=== PATIENT | female | born 1960 | race Caucasian/White ===

== ENCOUNTER 2018-10-26 21:47 | Inpatient (IN) | payer OTHER ==
[~2018-10-26] VITALS: Ht 165.1 cm; Wt 58.0 kg
[2018-10-26 21:48] VITALS: BP 157/104
[2018-10-26 22:05] LABS: ABSOLUTE BASOPHILS 0.1 thou/uL (0.0-0.2); ABSOLUTE LYMPHOCYTES 2.2 thou/uL (0.8-5.3); ABSOLUTE MONOCYTES 0.5 thou/uL (0.0-1.2); ABSOLUTE NEUTROPHILS 5.2 thou/uL (1.6-8.1); BASOPHILS 1.3 %; EOSINOPHILS 0.2 %; HEMATOCRIT 42.3 % (37.0-47.0); HEMOGLOBIN 14.2 gm/dL (12.0-15.0); LYMPHOCYTES 27.6 %; MCH 36.8 pg (26.0-34.0); MCHC 33.5 g/dL (28.0-37.0); MCV 109.8 fL (80.0-100.0); MONOCYTES 6.3 %; MPV 8.1 fl. (7.2-11.1); NUCLEATED RBCS 0 /100WBC; PLATELET COUNT* 279 thou/uL (150-400); POLYS 64.6 %; RBC 3.86 mil/uL (4.20-5.00); RDW-CV 16.8 % (10.5-14.5); WBC 8.1 thou/uL (4.0-11.0)
[2018-10-26 22:18] LABS: PROTIME 10.6 Seconds (9.20-11.50)
[2018-10-26 22:28] LABS: ANION GAP 10 mmol/L (7-16); BUN 7 mg/dL (7-18); CALCIUM 9.5 mg/dL (8.5-10.1); CHLORIDE 102 mmol/L (98-107); CO2 27 mmol/L (21-32); CREATININE 0.8 mg/dL (0.6-1.3); GLUCOSE 194 mg/dL (70-99); POTASSIUM 3.1 mmol/L (3.5-5.1); SODIUM 139 mmol/L (136-145); TROPONIN-I LEVEL <0.06 ng/mL (<0.06)
[2018-10-26 22:30] LABS: ALBUMIN 4.1 g/dL (3.4-5.0); ALKALINE PHOSPHATASE 118 U/L (46-116); AMMONIA 20 umol/L (11-32); LIPASE 108 U/L (73-393); MAGNESIUM 1.5 mg/dL (1.8-2.4); NT-PRO BRAIN NAT PEPTIDE 200 pg/mL (<300); PHOSPHORUS* 2.7 mg/dL (2.5-4.9); SGOT 19 U/L (15-37); SGPT 15 U/L (30-65); TOTAL PROTEIN 8.2 g/dL (6.4-8.2)
[2018-10-26 22:33] LABS: ACETAMINOPHEN < 2 ug/mL (10-30); SALICYLATE 3.7 mg/dL (2.8-20.0)
[2018-10-26 22:41] LABS: URINE BLOOD 2+ (Negative); URINE CLARITY CLEAR; URINE COLOR YELLOW; URINE GLUCOSE-RANDOM NEGATIVE (Negative); URINE KETONES 2+ (Negative); URINE LEUKOCYTES-REFLEX NEGATIVE (Negative); URINE NITRITE-REFLEX NEGATIVE (Negative); URINE PROTEIN 2+ (Negative); URINE SPECIFIC GRAVITY >= 1.030 (1.005-1.030)
[2018-10-26 22:48] LABS: URINE BILIRUBIN 1+ (Negative)
[2018-10-26 22:49] LABS: ICTOTEST (BILI CONFIRMATORY) Negative (Negative)
[2018-10-26 22:51] LABS: AMP/METHAMP Negative (Negative); BARBITURATES Negative (Negative); BENZODIAZEPINES POSITIVE (Negative); COCAINE Negative (Negative); METHADONE Negative (Negative); OPIATES Negative (Negative); PCP Negative (Negative); THC Negative (Negative)
[2018-10-26 22:54] LABS: BACTERIA-REFLEX 1-9 Few /HPF (None Seen); CASTS None Seen /LPF (None Seen); CRYSTALS None Seen /LPF (None Seen); MUCUS >6 Heavy strn/LPF (None Seen); SQUAMOUS 4-10 Moderate /LPF (0-3); URINE RBC 0-2 Rare /HPF (0-2); URINE WBC-REFLEX 0-5 Rare /HPF (0-5)
[2018-10-26 23:40] VITALS: BP 140/98
[2018-10-27] VITALS (10 sets, daily range): BP systolic 134–144; BP diastolic 80–98
--- NOTE | 2018-10-27 09:38 | EKG ---
[place] [address] ELECTROCARDIOGRAM REPORT Name: SANTI ART Room: [address] ADM [place] 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[place] : 1960 Requested By: Raul Guerrero Order Number: [id number] MD: Judah Delgado Measurements Intervals [place] Rate: 121 P: IN: QRS: 54 QRSD: 79 T: -50 QT: 327 QTc: 464 Interpretive Statements sinus tachycardia Nonspecific repol abnormality, diffuse leads Baseline wander in lead(s) II,III,aVF,V2 No previous ECG available for comparison Electronically Signed On 10-27-2018 9:38:13 CDT by Judah Delgado [email or web address] <ELECTRONICALLY SIGNED> By: Judah Delgado MD, [facility] 10/27/18 0938 [id number] Judah Delgado MD, [facility] /EPI
[2018-10-27 10:07] LABS: T3 UPTAKE 26 % (24-39)
[2018-10-27 19:29] LABS: MAGNESIUM 1.6 mg/dL (1.8-2.4)
[2018-10-27 19:32] LABS: POTASSIUM 4.3 mmol/L (3.5-5.1)
--- NOTE | 2018-10-29 10:16 | EEG ---
[address] [address] EEG STUDY REPORT Name: SANTI ART Maren Room: [address] [place] .#: [id number] Admission: 10/26/18 Attend Phys: Mt Dao MD Discharge: 10/28/18 Date of : 60 Report #: [id number] THIS REPORT FOR: //name// CC: FAM physician/PCP Mt Dao DATE OF SERVICE: 10/27/2018 This EEG was done to evaluate the patient for seizure. EEG was done by placing the electrode by standard 10-20 system of electrode placement. Both referential and sequential montages were used for recording. Background activity in this patient's EEG is about 10 Hz and 30 microvolt. Photic stimulation is unremarkable. This patient became drowsy and that is associated with bilateral slowing and vertex sharp waves. Throughout the record, no active epileptiform activity was noticed. A lot of artifact was noticed. IMPRESSION: This patient's EEG does not demonstrate any active epileptiform activity. It is masked by a lot of artifact because the patient did not cooperate. <ELECTRONICALLY SIGNED> By: Gurpreet Smiley MD 10/29/18 [id number] Smliey MD /nt
== END 2018-10-28 03:36 | disposition left against medical advice (07) | DRG 101 ==
LOC: M.ERS 21:47 → M.2W 23:48 → M.ICU 23:48 → M.TBA-ER 23:48 → M.2W 10-27 01:02 → M.ICU 10-27 18:01
PROVIDERS: Emergency Medicine; Internal Medicine; ADMIT Internal Medicine
DX: R56.9 Unspecified convulsions (principal); F10.10 Alcohol abuse, uncomplicated; E87.6 Hypokalemia; Z53.21 Procedure and treatment not carried out due to patient leaving prior to being seen by health care provider